=== PATIENT | male | born 1955 | race Caucasian/White ===

== ENCOUNTER → 2023-12-21 07:04 | Outpatient (REF) | payer BC, SELFPAY | LOC: DHCBC/DCA 07:04 | PROVIDERS: ATTENDING PHYSICIAN Internal Medicine; FAMILY PHYSICIAN Family Medicine | DX: I95.9 Hypotension, unspecified (principal) | CPT/HCPCS: 78452; 93017; A9500; J2785 ==

== ENCOUNTER → 2023-12-28 11:06 | Outpatient (REF) | payer BC, SELFPAY | LOC: HWRCS 11:06 | PROVIDERS: ATTENDING PHYSICIAN Internal Medicine; FAMILY PHYSICIAN Family Medicine | DX: I95.9 Hypotension, unspecified (principal) | CPT/HCPCS: 93306 ==

== ENCOUNTER → 2025-02-10 08:15 | Outpatient (REF) | payer BC, SELFPAY | LOC: HWRCS 08:15 | PROVIDERS: ATTENDING PHYSICIAN Nurse Practitioner; FAMILY PHYSICIAN Family Medicine | DX: Z87.898 Personal history of other specified conditions (principal); I10 Essential (primary) hypertension | CPT/HCPCS: 93306 ==

== ENCOUNTER 2025-04-10 06:11 | Day surgery (SDC) | payer BC, SELFPAY ==
[2025-04-10 08:08] LABS: Glucose - Point of Care 104 mg/dl (70-99)
== END 2025-04-10 09:16 | disposition home or self-care (01) ==
LOC: GI 06:11
PROVIDERS: ATTENDING PHYSICIAN Internal Medicine Gastroenterology; FAMILY PHYSICIAN Family Medicine
DX: Z12.11 Encounter for screening for malignant neoplasm of colon (principal); K64.8 Other hemorrhoids
CPT/HCPCS: G0105; 82962